=== PATIENT | female | born 1980 | race Caucasian/White ===

== ENCOUNTER 2017-08-08 15:25 | Emergency (ER) | payer OTHER ==
[2017-08-08] MEDS: DIAZEPAM 5 MG TAB PO (16:04)
[2017-08-08] MEDS: KETOROLAC 30 MG INJ IM (16:05)
[2017-08-08 16:33] LABS: ADD UMIC NO; UR ASCORBIC ACID NEGATIVE (NEGATIVE); UR BACTERIA FEW /HPF (NONE SEEN); UR BILIRUBIN (Dip) NEGATIVE (NEGATIVE); UR BLOOD (Dip) NEGATIVE (NEGATIVE); UR CLARITY SLIGHTLY CLOUDY (CLEAR); UR COLOR YELLOW (YELLOW); UR GLUCOSE (Dip) NEGATIVE (NEGATIVE); UR KETONES (Dip) 1+ mg/dL (NEGATIVE); UR LEUKOCYTE ESTERASE (Dip) NEGATIVE Leu/ul (NEGATIVE); UR MUCUS MODERATE /HPF (NONE SEEN); UR NITRITE (Dip) NEGATIVE (NEGATIVE); UR RBC 3 /HPF (0-5); UR SQUAMOUS EPITHELIAL CELL FEW /HPF (FEW); UR TOTAL PROTEIN (Dip) NEGATIVE (NEGATIVE); UR UROBILINOGEN (Dip) NEGATIVE (NEGATIVE); UR WBC 1 /HPF (0-5)
== END 2017-08-08 17:52 | disposition home or self-care (01) ==
LOC: FTE 15:25
DX: M54.42 Lumbago with sciatica, left side (principal)
CPT/HCPCS: 72100; 81001; 81003; 81025; 96372; 99284-25

== ENCOUNTER 2017-10-05 20:02 | Emergency (ER) | payer OTHER ==
[2017-10-05] MEDS: KETOROLAC 30 MG INJ IM (22:55)
== END 2017-10-05 22:55 | disposition home or self-care (01) ==
LOC: FTE 20:02
DX: M25.511 Pain in right shoulder (principal); M25.512 Pain in left shoulder; M62.838 Other muscle spasm; F17.210 Nicotine dependence, cigarettes, uncomplicated
CPT/HCPCS: 81025; 96372; 99284-25